=== PATIENT | female | born 1960 | race Caucasian/White ===

== ENCOUNTER → 2021-02-11 | Outpatient (CLI) | payer OTHER | LOC: MRI 16:30 | DX: R90.89 Other abnormal findings on diagnostic imaging of central nervous system (principal); E55.9 Vitamin D deficiency, unspecified; G43.109 Migraine with aura, not intractable, without status migrainosus; F09 Unspecified mental disorder due to known physiological condition; R53.83 Other fatigue; G60.9 Hereditary and idiopathic neuropathy, unspecified; R41.3 Other amnesia; G35 Multiple sclerosis | CPT/HCPCS: 70553; 82565; A9577 ==

== ENCOUNTER → 2021-03-08 | Outpatient (CLI) | payer OTHER | LOC: KOH-I 03-01 10:30 | DX: M50.323 Other cervical disc degeneration at C6-C7 level (principal); M48.02 Spinal stenosis, cervical region | CPT/HCPCS: 72141 ==

== ENCOUNTER → 2021-04-05 | Outpatient (CLI) | payer OTHER | LOC: US 03-31 15:00 | DX: I65.23 Occlusion and stenosis of bilateral carotid arteries (principal) | CPT/HCPCS: 93880 ==